=== PATIENT | male | born 1995 | race Caucasian/White ===

== ENCOUNTER 2018-01-15 10:30 | Emergency (ER) | payer BC ==
[2018-01-15] MEDS ORDERED: hydrOXYzine HCL 50 MG/ML VIAL IM ONE (10:34)
[2018-01-15] MEDS ORDERED: 0.9 % SODIUM CHLORIDE 1,000 ML IV ONE (10:34)
[2018-01-15 10:55] VITALS: BP 127/72
--- NOTE | 2018-01-15 11:16 | ED Physician Documentation ---
General Adult - HISTORIAN Historian: patient - HPI Stated Complaint: withdraw Chief Complaint: General Adult Further Comments: yes (22 year old from [facility] presents with complaint of "adverse reaction to suboxone"; c/o severe anxiety and pain all over. At [facility] from Fentanyl abuse; "nothing for 72 hours" per patient.) - ROS CONST: denies: no problems EYES/ENT: none CVS/RESP: none GI/: none MS/SKIN/LYMPH: none NEURO/PSYCH: anxiety - PAST HX Past History: none Allergies/Adverse Reactions: Allergies Allergy/AdvReac Type Severity Reaction Status Date / Time No Known Allergies Allergy Unverified 01/15/18 10:56 Home Medications: Ambulatory Orders Medication Instructions Recorded Acetaminophen [Tylenol Extra 1,000 mg PO Q4 PRN 01/15/18 Strength] Buprenorphine HCl/Naloxone HCl 1 each SL QDAY 01/15/18 [Suboxone 8 mg-2 mg Sl Film] Ibuprofen [Ibu] 400 mg PO Q4H PRN 01/15/18 Ondansetron HCl Rapdis [Zofran Odt] 4 mg PO Q6 PRN 01/15/18 - SOCIAL HX Smoking History: cigarettes Drug Use: other (Fentanyl abuse - opiods) - FAMILY HX Family History: No - VITAL SIGNS Vital Signs: Vital Signs Temp Pulse Resp BP Pulse Ox 97.2 F L 102 H 16 127/72 99 01/15/18 10:30 01/15/18 10:30 01/15/18 10:30 01/15/18 10:30 01/15/18 10:30 - REVIEWED ASSESSMENTS Nursing Assessment Reviewed: Yes Vitals Reviewed: Yes Progress - Progress Progress: Patient medicated with Vistaril on arrival 1115 Patient c/o no improvement with vistaril; yelling "I want ativan, Are you stupid? Do you not know how to treat withdraw?" Offered additional dose of benadryl. Will not treat patient with ativan at this time. Patient left ER AMA Call to [facility]; spoke with Yesi - updated on patient care and AMA. ED Results Lab/Radiology - Orders Orders: ED Orders Category Date Time Status Place IV Lock 1T Care 01/15/18 10:34 Active 0.9 % Sodium Chloride [Normal Saline] 1,000 ml Med 01/15/18 10:34 Discontinued IV NOW hydrOXYzine HCL [Vistaril] Med 01/15/18 10:34 Discontinued 50 mg IM NOW ONE General Adult Physical Exam - PHYSICAL EXAM GENERAL APPEARANCE: mild distress EENT: eye inspection normal, FRANCISCO RESPIRATORY: no resp distress, chest non-tender, breath sounds normal CVS: heart sounds normal, equal pulses, no murmur, no gallop, PMI nml, no JVD, no friction rub, tachycardia ABDOMEN: soft, no organomegaly, normal bowel sounds, no abdominal bruit, no distension SKIN: normal color, warm/dry, NR, INT, PAL, DR EXTREMITIES: non-tender, normal range of motion, no evidence of injury, no christine ma, J, [employer] NEURO: oriented X3, CN's nml as tested, motor nml, sensation nml, other (agitated and yelling at nurses) Discharge Clincal Impression: Left against medical advice Condition: Stable Disposition: 01 HOME, SELF-CARE Decision to Admit: NO Decision Time: 11:15
== END 2018-01-15 11:20 | disposition home or self-care (01) ==
LOC: ED 10:30
DX: R45.1 Restlessness and agitation (principal); Z53.9 Procedure and treatment not carried out, unspecified reason; Z87.898 Personal history of other specified conditions
CPT/HCPCS: 96372; J3410